=== PATIENT | male | born 1985 | race African-American/Black ===

== ENCOUNTER 2016-02-17 08:15 | Inpatient (IN) | payer OTHER ==
[~2016-02-17] VITALS: Ht 177.8 cm; Wt 68.0 kg
[~2016-02-17 08:15] MED LIST: APAP650 PO; BENTYL 10 MG CA10 M1 PO; BENTYL 10 MG CA10 MG PO; BENTYL 20 MG TA20 M1 PO; CIPRO500 MG; CIPRO500 MG PO; CIPROFLOXACIN500 M1 PO; DELTASONE20 MG PO; DICYCLOMINE HCL20 MG PO; FLAGYL500 MG PO; HYDROCODONE-AP1 EAC6 PO; K-DUR 20 MEQ T20 MEQ PO; NAPROSYN500 MG PO; NOHOMEMEDICATIONS; NORCO 5-325 TA1 EACH PO; NORFLEX100 MG PO; ONDANSETRON HCL4 M2 PO; PHENERGAN 25 MG25 M1 PO; PREDNISONE 10 M10 MG; PREDNISONE 20 M20 MG PO; PREDNISONE 5 MG5 MG PO; PRILOSEC 20 MG20 MG PO; TRAMADOL 50 MG50 MG PO; ZIAGEN 300 MG300 MG; ZOFRAN ODT4 MG PO; ZOFRAN4 MG PO
[2016-02-17 08:16] VITALS: BP 147/100
[2016-02-17 08:59] LABS: ABSOLUTE NEUTROPHILS 4.7 thou/uL (1.4-8.2); BASOPHILS 1.2 % (0.0-2.0); EOSINOPHILS 2.9 % (0.0-3.0); HEMATOCRIT 37.2 % (42.0-52.0); HEMOGLOBIN 12.4 gm/dL (14.0-18.0); LYMPHOCYTES 24.1 % (24.0-44.0); MCH 26.2 pg (26.0-34.0); MCHC 33.3 % (28.0-37.0); MCV 78.8 fL (80.0-100.0); MONOCYTES 7.9 % (1.0-8.0); PLATELET COUNT 254 thou/uL (150-400); POLYS 63.9 % (36.0-66.0); RBC 4.72 mil/uL (4.50-6.00); RDW 14.4 % (10.5-14.5); WBC 7.3 thou/uL (4.0-11.0)
[2016-02-17 09:04] LABS: CALCIUM 8.6 mg/dL (8.5-10.1); CREATININE 0.9 mg/dL (0.6-1.3); POTASSIUM 4.1 mmol/L (3.5-5.1)
[2016-02-17 09:07] LABS: MANUAL DIFF NO
[2016-02-17 09:17] VITALS: BP 132/94
[2016-02-17 09:49] LABS: URINE BILIRUBIN NEGATIVE (Negative); URINE BLOOD NEGATIVE (Negative); URINE COLOR YELLOW; URINE GLUCOSE-RANDOM* NEGATIVE (Negative); URINE KETONES NEGATIVE (Negative); URINE NITRITE NEGATIVE (Negative); URINE PROTEIN (DIPSTICK) NEGATIVE (Negative); URINE SPECIFIC GRAVITY >= 1.030 (1.003-1.035); URINE UROBILINOGEN 0.2 E.U./dl (0.2-1.0)
[2016-02-17 09:54] LABS: AMP/METHAMP Negative (Negative); BARBITURATES Negative (Negative); BENZODIAZEPINES Negative (Negative); COCAINE Negative (Negative); METHADONE Negative (Negative); OPIATES POSITIVE (Negative); PCP Negative (Negative); THC POSITIVE (Negative)
[2016-02-17 11:54] VITALS: BP 135/91
[2016-02-17 16:45] VITALS: BP 147/97
[2016-02-17 22:30] VITALS: BP 156/99
[2016-02-18 04:35] VITALS: BP 170/97
[2016-02-18 05:34] LABS: HEMATOCRIT 39.7 % (42.0-52.0); MCH 25.9 pg (26.0-34.0); MCHC 32.8 % (28.0-37.0); MCV 78.8 fL (80.0-100.0); RBC 5.04 mil/uL (4.50-6.00); RDW 13.9 % (10.5-14.5); WBC 12.6 thou/uL (4.0-11.0)
[2016-02-18 05:52] LABS: CALCIUM 8.7 mg/dL (8.5-10.1); CREATININE 0.9 mg/dL (0.6-1.3); POTASSIUM 4.4 mmol/L (3.5-5.1)
[2016-02-18 08:00] VITALS: BP 169/106
[2016-02-18 16:24] VITALS: BP 167/101
[2016-02-18 20:00] VITALS: BP 171/103
[2016-02-19 04:30] VITALS: BP 153/95
[2016-02-19 04:30] LABS: HEMATOCRIT 41.4 % (42.0-52.0); HEMOGLOBIN 13.4 gm/dL (14.0-18.0); MCH 25.7 pg (26.0-34.0); MCHC 32.5 % (28.0-37.0); MCV 79.1 fL (80.0-100.0); PLATELET COUNT 274 thou/uL (150-400); RBC 5.23 mil/uL (4.50-6.00); RDW 13.9 % (10.5-14.5); WBC 14.5 thou/uL (4.0-11.0)
[2016-02-19 05:00] LABS: MANUAL DIFF YES
[2016-02-19 05:20] LABS: ALBUMIN 3.5 g/dL (3.4-5.0); POTASSIUM 4.1 mmol/L (3.5-5.1); TOTAL BILIRUBIN 0.5 mg/dL (<0.1-1.0); TOTAL PROTEIN 7.1 g/dL (6.4-8.2)
[2016-02-19 06:47] LABS: ABSOLUTE NEUTROPHILS 11.6 thou/uL (1.4-8.2); PLATELET ESTIMATE NORMAL; TOTAL CELL COUNT 100
[2016-02-19 08:39] VITALS: BP 145/101
[2016-02-19 13:06] VITALS: BP 145/101
[2016-02-22 16:12] LABS: SACCHAROMYCES IGA < 20.0 Units (0.0-24.9); SACCHAROMYCES IGG < 20.0 Units (0.0-24.9); c-ANCA <1:20 titer (Neg:<1:20); p-ANCA <1:20 titer (Neg:<1:20)
[2016-04-08] MEDS ORDERED: PREDNISONE 20 M20 MG PO (21:16)
[2016-04-08] MEDS ORDERED: HYDROCODONE-AP1 EAC6 PO (21:16)
== END 2016-02-19 14:58 | disposition home or self-care (01) | DRG 387 ==
LOC: ER 08:15 → EROBS 08:46 → 4N 09:17
PROVIDERS: Emergency Medicine; Nurse Practitioner Family; Specialist
DX: K50.10 Crohn's disease of large intestine without complications (principal); R10.9 Unspecified abdominal pain; D72.828 Other elevated white blood cell count; K52.9 Noninfective gastroenteritis and colitis, unspecified; F12.10 Cannabis abuse, uncomplicated; I10 Essential (primary) hypertension; R11.2 Nausea with vomiting, unspecified; Z79.899 Other long term (current) drug therapy; Z79.52 Long term (current) use of systemic steroids; Z98.890 Other specified postprocedural states
CPT/HCPCS: 10091

== ENCOUNTER 2016-10-17 20:51 | Emergency (ER) | payer OTHER ==
[~2016-10-17] VITALS: Ht 180.3 cm; Wt 68.0 kg
[2016-10-17 21:37] LABS: ABSOLUTE NEUTROPHILS 6.9 thou/uL (1.4-8.2); BASOPHILS 0.7 % (0.0-2.0); EOSINOPHILS 1.6 % (0.0-3.0); HEMATOCRIT 45.7 % (42.0-52.0); HEMOGLOBIN 15.3 gm/dL (14.0-18.0); LYMPHOCYTES 17.9 % (24.0-44.0); MANUAL DIFF NO; MCH 26.9 pg (26.0-34.0); MCHC 33.4 g/dL (28.0-37.0); MCV 80.4 fL (80.0-100.0); MONOCYTES 6.8 % (1.0-8.0); PLATELET COUNT 277 thou/uL (150-400); RBC 5.69 mil/uL (4.50-6.00); RDW 15.8 % (10.5-14.5); WBC 9.5 thou/uL (4.0-11.0)
[2016-10-17 21:39] LABS: CALCIUM 9.3 mg/dL (8.5-10.1); CREATININE 0.9 mg/dL (0.7-1.3); POTASSIUM 3.5 mmol/L (3.5-5.1)
[2016-10-17 21:45] LABS: ALBUMIN 4.2 g/dL (3.4-5.0); DIRECT BILIRUBIN 0.1 mg/dL (<0.1-0.3); TOTAL BILIRUBIN 0.5 mg/dL (<0.1-1.0); TOTAL PROTEIN 7.7 g/dL (6.4-8.2)
[2016-10-17] MEDS ORDERED: NORCO 5-325 TA1 EACH PO (23:13)
[2016-10-17] MEDS ORDERED: PREDNISONE 20 M20 MG PO (23:13)
[2016-10-17] MEDS ORDERED: OMEPRAZOLE40 MG PO (23:13)
[2016-10-17] MEDS ORDERED: ONDANSETRON HCL4 M2 PO (23:16)
== END 2016-10-17 23:29 | disposition home or self-care (01) ==
LOC: ER 20:51
PROVIDERS: Nurse Practitioner
DX: E87.2 Acidosis (principal); R11.2 Nausea with vomiting, unspecified; K50.90 Crohn's disease, unspecified, without complications; F10.99 Alcohol use, unspecified with unspecified alcohol-induced disorder

== ENCOUNTER 2016-10-29 18:04 | Emergency (ER) | payer OTHER ==
[~2016-10-29] VITALS: Ht 172.7 cm; Wt 65.8 kg
[~2016-10-29 18:04] MED LIST changes: +OMEPRAZOLE40 MG PO
[2016-10-29 19:01] LABS: ABSOLUTE NEUTROPHILS 3.8 thou/uL (1.4-8.2); BASOPHILS 1.4 % (0.0-2.0); EOSINOPHILS 1.2 % (0.0-3.0); HEMATOCRIT 46.3 % (42.0-52.0); HEMOGLOBIN 15.9 gm/dL (14.0-18.0); LYMPHOCYTES 31.2 % (24.0-44.0); MCH 27.4 pg (26.0-34.0); MCHC 34.3 g/dL (28.0-37.0); PLATELET COUNT 252 thou/uL (150-400); POLYS 57.2 % (36.0-66.0); RBC 5.79 mil/uL (4.50-6.00); RDW 15.5 % (10.5-14.5); WBC 6.6 thou/uL (4.0-11.0)
[2016-10-29 19:09] LABS: MANUAL DIFF NO
[2016-10-29 19:12] LABS: CALCIUM 9.8 mg/dL (8.5-10.1); CREATININE 1.3 mg/dL (0.7-1.3); POTASSIUM 3.6 mmol/L (3.5-5.1)
[2016-10-29 19:18] LABS: ALBUMIN 4.5 g/dL (3.4-5.0); TOTAL BILIRUBIN 0.4 mg/dL (<0.1-1.0); TOTAL PROTEIN 8.2 g/dL (6.4-8.2)
[2016-10-29] MEDS ORDERED: ACETAMINOPHEN-1 EAC1 PO (19:59)
[2016-10-29] MEDS ORDERED: ZOFRAN ODT8 MG PO (19:59)
[2016-10-29] MEDS ORDERED: LEVSIN0.125 MG PO (19:59)
== END 2016-10-29 20:18 | disposition home or self-care (01) ==
LOC: ER 18:04
PROVIDERS: Emergency Medicine
DX: R11.2 Nausea with vomiting, unspecified (principal); R10.13 Epigastric pain; R10.33 Periumbilical pain; R14.3 Flatulence; K50.90 Crohn's disease, unspecified, without complications; F10.99 Alcohol use, unspecified with unspecified alcohol-induced disorder; F12.10 Cannabis abuse, uncomplicated

== ENCOUNTER 2017-01-08 18:46 | Emergency (ER) | payer OTHER ==
[~2017-01-08] VITALS: Ht 177.8 cm; Wt 68.0 kg
[~2017-01-08 18:46] MED LIST changes: +ACETAMINOPHEN-1 EAC1 PO; +COMPAZINE10 MG PO; +LEVSIN0.125 MG PO; +ZOFRAN ODT8 MG PO
[2017-01-08 20:04] LABS: URINE BILIRUBIN NEGATIVE (Negative); URINE BLOOD NEGATIVE (Negative); URINE COLOR YELLOW; URINE GLUCOSE-RANDOM* NEGATIVE (Negative); URINE KETONES TRACE (Negative); URINE LEUKOCYTES-REFLEX NEGATIVE (Negative); URINE PROTEIN (DIPSTICK) NEGATIVE (Negative); URINE UROBILINOGEN 0.2 E.U./dl (0.2-1.0)
[2017-01-08 20:45] LABS: AMP/METHAMP Negative (Negative); BARBITURATES Negative (Negative); BENZODIAZEPINES Negative (Negative); COCAINE Negative (Negative); METHADONE Negative (Negative); OPIATES POSITIVE (Negative); PCP Negative (Negative); THC POSITIVE (Negative)
[2017-01-08] MEDS ORDERED: PHENERGAN 25 MG25 M1 PO (22:06)
== END 2017-01-08 22:15 | disposition home or self-care (01) ==
LOC: ER 18:46
PROVIDERS: Emergency Medicine
DX: R10.84 Generalized abdominal pain (principal); R11.2 Nausea with vomiting, unspecified; F10.99 Alcohol use, unspecified with unspecified alcohol-induced disorder; F12.10 Cannabis abuse, uncomplicated

== ENCOUNTER 2018-04-28 12:28 | Emergency (ER) | payer OTHER ==
[~2018-04-28] VITALS: Ht 180.3 cm; Wt 72.6 kg
[2018-04-28 12:55] LABS: URINE BILIRUBIN NEGATIVE (Negative); URINE BLOOD NEGATIVE (Negative); URINE CLARITY CLEAR; URINE COLOR YELLOW; URINE GLUCOSE-RANDOM* NEGATIVE (Negative); URINE KETONES NEGATIVE (Negative); URINE LEUKOCYTES-REFLEX NEGATIVE (Negative); URINE NITRITE-REFLEX NEGATIVE (Negative); URINE PROTEIN (DIPSTICK) NEGATIVE (Negative); URINE SPECIFIC GRAVITY >= 1.030 (1.005-1.035); URINE UROBILINOGEN 0.2 E.U./dl (0.2-1.0)
[2018-04-28 13:21] LABS: POTASSIUM 4.2 mmol/L (3.5-5.1)
[2018-04-28 13:26] LABS: ALBUMIN 3.9 g/dL (3.4-5.0); TOTAL BILIRUBIN 0.3 mg/dL (<0.1-1.0); TOTAL PROTEIN 7.8 g/dL (6.4-8.2)
[2018-04-28 13:40] LABS: ABSOLUTE NEUTROPHILS 11.3 thou/uL (1.4-8.2); BASOPHILS 0.8 % (0.0-2.0); EOSINOPHILS 1.6 % (0.0-3.0); HEMATOCRIT 48.6 % (42.0-52.0); LYMPHOCYTES 9.2 % (24.0-44.0); MCH 26.3 pg (26.0-34.0); MCHC 32.9 g/dL (28.0-37.0); PLATELET COUNT 254 thou/uL (150-400); POLYS 82.4 % (36.0-66.0); RBC 6.07 mil/uL (4.50-6.00); RDW 14.6 % (10.5-14.5); WBC 13.7 thou/uL (4.0-11.0)
[2018-04-28] MEDS ORDERED: MEDROLDOSEPACK PO (14:36)
[2018-04-28] MEDS ORDERED: NORCO 5-325 TA1 EACH PO (14:36)
[2018-04-28] MEDS ORDERED: ONDANSETRON HCL4 M2 PO (14:43)
[2018-04-28 14:52] VITALS: BP 131/86
== END 2018-04-28 14:52 | disposition home or self-care (01) ==
LOC: ER 12:28
PROVIDERS: Physician Assistant
DX: K52.9 Noninfective gastroenteritis and colitis, unspecified (principal); K50.90 Crohn's disease, unspecified, without complications

== ENCOUNTER 2018-10-11 11:25 | Emergency (ER) | payer OTHER ==
[~2018-10-11] VITALS: Ht 177.8 cm; Wt 71.7 kg
[~2018-10-11 11:25] MED LIST changes: +MEDROLDOSEPACK PO
[2018-10-11 11:47] LABS: ABSOLUTE NEUTROPHILS 5.9 thou/uL (1.4-8.2); BASOPHILS 0.7 % (0.0-2.0); EOSINOPHILS 2.2 % (0.0-3.0); HEMATOCRIT 47.3 % (42.0-52.0); LYMPHOCYTES 20.7 % (24.0-44.0); MCH 26.8 pg (26.0-34.0); MCHC 33.9 g/dL (28.0-37.0); MONOCYTES 8.4 % (1.0-8.0); PLATELET COUNT 278 thou/uL (150-400); RBC 5.98 mil/uL (4.50-6.00); RDW 14.6 % (10.5-14.5); WBC 8.7 thou/uL (4.0-11.0)
[2018-10-11 11:52] LABS: CALCIUM 9.8 mg/dL (8.5-10.1); CREATININE 1.1 mg/dL (0.7-1.3); POTASSIUM 3.4 mmol/L (3.5-5.1)
[2018-10-11 11:58] LABS: ALBUMIN 4.5 g/dL (3.4-5.0); TOTAL BILIRUBIN 0.6 mg/dL (<0.1-1.0); TOTAL PROTEIN 8.7 g/dL (6.4-8.2)
[2018-10-11 12:38] LABS: MAGNESIUM 1.6 mg/dL (1.8-2.4); PHOSPHORUS 1.7 mg/dL (2.5-4.9)
[2018-10-11 13:18] LABS: URINE BILIRUBIN NEGATIVE (Negative); URINE BLOOD NEGATIVE (Negative); URINE CLARITY CLEAR; URINE COLOR YELLOW; URINE GLUCOSE-RANDOM* NEGATIVE (Negative); URINE KETONES NEGATIVE (Negative); URINE LEUKOCYTES-REFLEX NEGATIVE (Negative); URINE NITRITE-REFLEX NEGATIVE (Negative); URINE PROTEIN (DIPSTICK) TRACE (Negative); URINE UROBILINOGEN 0.2 E.U./dl (0.2-1.0)
[2018-10-11] MEDS ORDERED: MAG-OXIDE400 MG PO (14:35)
[2018-10-11] MEDS ORDERED: ONDANSETRON ODT8 MG PO (14:35)
[2018-10-11] MEDS ORDERED: K-PHOS NEUTRAL250 MG PO (14:35)
[2018-10-11] MEDS ORDERED: TRAMADOL 50 MG50 MG PO (14:35)
[2018-10-11 15:01] VITALS: BP 103/66
== END 2018-10-11 15:02 | disposition home or self-care (01) ==
LOC: ER 11:25
PROVIDERS: Emergency Medicine
DX: K50.90 Crohn's disease, unspecified, without complications (principal); E83.42 Hypomagnesemia; E83.39 Other disorders of phosphorus metabolism

== ENCOUNTER 2018-12-16 17:10 | Emergency (ER) | payer OTHER ==
[~2018-12-16] VITALS: Ht 177.8 cm; Wt 73.5 kg
[~2018-12-16 17:10] MED LIST changes: +K-PHOS NEUTRAL250 MG PO; +MAG-OXIDE400 MG PO; +ONDANSETRON ODT8 MG PO
[2018-12-16 17:14] VITALS: BP 135/91
[2018-12-16 18:15] LABS: URINE BILIRUBIN NEGATIVE (Negative); URINE BLOOD NEGATIVE (Negative); URINE CLARITY SL CLOUDY; URINE COLOR YELLOW; URINE GLUCOSE-RANDOM* NEGATIVE (Negative); URINE KETONES NEGATIVE (Negative); URINE LEUKOCYTES-REFLEX 2+ (Negative); URINE NITRITE-REFLEX NEGATIVE (Negative); URINE PROTEIN (DIPSTICK) NEGATIVE (Negative)
[2018-12-16 18:25] LABS: BACTERIA-REFLEX 1-9 Few /HPF (None Seen); CASTS None Seen /LPF (None Seen); CRYSTALS None Seen /LPF (None Seen); SQUAMOUS None Seen /LPF (0-3); URINE RBC None Seen /HPF (0-2); URINE WBC-REFLEX >25 Many /HPF (0-5)
[2018-12-16] MEDS ORDERED: DOXYCYCLINE 10100 MG PO (18:50)
== END 2018-12-16 18:40 | disposition home or self-care (01) ==
LOC: ER 17:10
PROVIDERS: Emergency Medicine; Nurse Practitioner Family
DX: N34.2 Other urethritis (principal); K50.90 Crohn's disease, unspecified, without complications

== ENCOUNTER 2019-01-10 13:17 | Emergency (ER) | payer OTHER ==
[~2019-01-10] VITALS: Ht 175.3 cm; Wt 76.2 kg
[~2019-01-10 13:17] MED LIST changes: +DOXYCYCLINE 10100 MG PO
[2019-01-10 13:48] LABS: ABSOLUTE NEUTROPHILS 6.6 thou/uL (1.4-8.2); BASOPHILS 0.8 % (0.0-2.0); EOSINOPHILS 3.1 % (0.0-3.0); HEMATOCRIT 43.5 % (42.0-52.0); HEMOGLOBIN 14.5 gm/dL (14.0-18.0); LYMPHOCYTES 18.5 % (24.0-44.0); MCH 26.6 pg (26.0-34.0); MCHC 33.3 g/dL (28.0-37.0); MCV 79.9 fL (80.0-100.0); MONOCYTES 4.8 % (1.0-8.0); PLATELET COUNT 314 thou/uL (150-400); POLYS 72.8 % (36.0-66.0); RBC 5.45 mil/uL (4.50-6.00); RDW 14.6 % (10.5-14.5); WBC 9.1 thou/uL (4.0-11.0)
[2019-01-10 13:56] LABS: CREATININE 1.1 mg/dL (0.7-1.3); POTASSIUM 3.6 mmol/L (3.5-5.1)
[2019-01-10 14:02] LABS: ALBUMIN 4.5 g/dL (3.4-5.0); TOTAL BILIRUBIN 0.4 mg/dL (<0.1-1.0); TOTAL PROTEIN 8.2 g/dL (6.4-8.2)
[2019-01-10] MEDS ORDERED: ONDANSETRON ODT4 MG PO (15:01)
[2019-01-10 15:44] VITALS: BP 143/89
== END 2019-01-10 15:45 | disposition home or self-care (01) ==
LOC: ER 13:17
PROVIDERS: Emergency Medicine
DX: R10.33 Periumbilical pain (principal); R19.7 Diarrhea, unspecified; K50.90 Crohn's disease, unspecified, without complications

== ENCOUNTER 2019-01-25 15:43 | Emergency (ER) | payer OTHER ==
[~2019-01-25] VITALS: Ht 177.8 cm; Wt 72.6 kg
[~2019-01-25 15:43] MED LIST changes: +ONDANSETRON ODT4 MG PO
[2019-01-25 16:34] LABS: ABSOLUTE NEUTROPHILS 3.5 thou/uL (1.4-8.2); BASOPHILS 1.3 % (0.0-2.0); EOSINOPHILS 5.3 % (0.0-3.0); HEMATOCRIT 46.2 % (42.0-52.0); HEMOGLOBIN 15.1 gm/dL (14.0-18.0); MCH 26.5 pg (26.0-34.0); MCHC 32.6 g/dL (28.0-37.0); MCV 81.2 fL (80.0-100.0); MONOCYTES 8.6 % (1.0-8.0); PLATELET COUNT 310 thou/uL (150-400); POLYS 61.8 % (36.0-66.0); RBC 5.69 mil/uL (4.50-6.00); RDW 15.1 % (10.5-14.5); WBC 5.7 thou/uL (4.0-11.0)
[2019-01-25 16:52] LABS: ALBUMIN 4.5 g/dL (3.4-5.0); POTASSIUM 4.4 mmol/L (3.5-5.1); TOTAL BILIRUBIN 0.3 mg/dL (<0.1-1.0); TOTAL PROTEIN 8.5 g/dL (6.4-8.2)
[2019-01-25 16:59] LABS: CALCIUM 10.2 mg/dL (8.5-10.1)
[2019-01-25 17:41] LABS: URINE BILIRUBIN NEGATIVE (Negative); URINE BLOOD NEGATIVE (Negative); URINE CLARITY CLEAR; URINE COLOR YELLOW; URINE GLUCOSE-RANDOM* NEGATIVE (Negative); URINE KETONES NEGATIVE (Negative); URINE LEUKOCYTES-REFLEX NEGATIVE (Negative); URINE NITRITE-REFLEX NEGATIVE (Negative); URINE PROTEIN (DIPSTICK) NEGATIVE (Negative); URINE SPECIFIC GRAVITY 1.015 (1.005-1.035); URINE UROBILINOGEN 0.2 E.U./dl (0.2-1.0)
[2019-01-25] MEDS ORDERED: TRAMADOL 50 MG50 MG PO (20:07)
[2019-01-25] MEDS ORDERED: ONDANSETRON ODT8 MG PO (20:07)
[2019-01-25] MEDS ORDERED: PRILOSEC OTC20 MG PO (20:08)
[2019-01-25 20:16] VITALS: BP 142/76
[2019-01-25 20:32] LABS: AMP/METHAMP Negative (Negative); BARBITURATES Negative (Negative); BENZODIAZEPINES POSITIVE (Negative); COCAINE Negative (Negative); METHADONE Negative (Negative); OPIATES Negative (Negative); PCP Negative (Negative)
== END 2019-01-25 20:18 | disposition home or self-care (01) ==
LOC: ER 15:43
PROVIDERS: Emergency Medicine
DX: R11.2 Nausea with vomiting, unspecified (principal); R10.13 Epigastric pain; Z87.19 Personal history of other diseases of the digestive system

== ENCOUNTER 2019-01-27 12:04 | Inpatient (IN) | payer OTHER ==
[~2019-01-27] VITALS: Ht 177.8 cm; Wt 71.2 kg
[~2019-01-27 12:04] MED LIST changes: +PRILOSEC OTC20 MG PO
[2019-01-27 12:16] VITALS: BP 161/105
[2019-01-27 13:37] LABS: ABSOLUTE NEUTROPHILS 9.1 thou/uL (1.4-8.2); BASOPHILS 0.7 % (0.0-2.0); EOSINOPHILS 0.8 % (0.0-3.0); HEMATOCRIT 44.1 % (42.0-52.0); HEMOGLOBIN 14.5 gm/dL (14.0-18.0); LYMPHOCYTES 13.4 % (24.0-44.0); MCH 26.5 pg (26.0-34.0); MCHC 32.9 g/dL (28.0-37.0); MCV 80.7 fL (80.0-100.0); MONOCYTES 4.6 % (1.0-8.0); PLATELET COUNT 296 thou/uL (150-400); POLYS 80.5 % (36.0-66.0); RBC 5.47 mil/uL (4.50-6.00); RDW 14.9 % (10.5-14.5); WBC 11.2 thou/uL (4.0-11.0)
[2019-01-27 13:47] LABS: CALCIUM 9.7 mg/dL (8.5-10.1); CREATININE 1.1 mg/dL (0.7-1.3); POTASSIUM 3.4 mmol/L (3.5-5.1)
[2019-01-27 13:52] LABS: ALBUMIN 4.6 g/dL (3.4-5.0); DIRECT BILIRUBIN 0.1 mg/dL (<0.1-0.2); TOTAL BILIRUBIN 0.4 mg/dL (<0.1-1.0); TOTAL PROTEIN 8.5 g/dL (6.4-8.2)
[2019-01-27 16:56] VITALS: BP 146/81
[2019-01-27 17:49] VITALS: BP 158/101
[2019-01-27 19:13] VITALS: BP 158/96
--- NOTE | 2019-01-28 03:56 | NUR ---
ASSUMED CARE AROUND 1914. AXOX4. AD UCHE. PERSISTENT PAIN TO ABD AND UNRELIEVED NAUSEA, PARTIALLY RELIEVED WITH MEDS. IV REPLACED TO RFA IN THE BEGINNING OF SHIFT CHANGE. NO S/S ACUTE DISTRESS NOTED OR REPORTED AT THIS TIME. WILL CONT TO MONITOR FOR ANY CHANGES IN CONDITION.
[2019-01-28 04:02] VITALS: BP 124/82
[2019-01-28 06:02] LABS: ABSOLUTE NEUTROPHILS 6.4 thou/uL (1.4-8.2); BASOPHILS 0.7 % (0.0-2.0); EOSINOPHILS 1.1 % (0.0-3.0); HEMATOCRIT 38.2 % (42.0-52.0); LYMPHOCYTES 23.8 % (24.0-44.0); MCH 26.5 pg (26.0-34.0); MCHC 32.4 g/dL (28.0-37.0); MCV 81.9 fL (80.0-100.0); MONOCYTES 6.5 % (1.0-8.0); PLATELET COUNT 253 thou/uL (150-400); POLYS 67.9 % (36.0-66.0); RBC 4.66 mil/uL (4.50-6.00); RDW 14.6 % (10.5-14.5); WBC 9.5 thou/uL (4.0-11.0)
[2019-01-28 06:12] LABS: HEMOGLOBIN 12.4 gm/dL (14.0-18.0)
[2019-01-28 06:16] LABS: ALBUMIN 3.4 g/dL (3.4-5.0); CALCIUM 8.4 mg/dL (8.5-10.1); CREATININE 0.9 mg/dL (0.7-1.3); MAGNESIUM 1.6 mg/dL (1.8-2.4); POTASSIUM 3.9 mmol/L (3.5-5.1); TOTAL BILIRUBIN 0.7 mg/dL (<0.1-1.0); TOTAL PROTEIN 6.5 g/dL (6.4-8.2)
[2019-01-28 07:24] VITALS: BP 128/71
--- NOTE | 2019-01-28 11:44 | NUR ---
ORDERS RECEIVED FOR PT EVAL AND TREAT. Pt HAS BEEN UP AD UCHE IN ROOM PER Pt AND RN. Pt REPORTED HE LIVES IN AN APT ALONE, SECOND FLOOR WITH FLIGHT OF STAIRS TO ACCESS. INDEP WITH ADLs AND GAIT W/O ASSISTIVE DEVICES. REPORTED NO RECENT FALLS. Pt WORKS OVERNIGHT FOR [employer]. Pt REPORTED NO DIFFICULTIES WITH GAIT, BALANCE, OR STRENGTH. DECLINED NEEDED PT SERVICES AT THIS TIME. IF Pt EXPERIENCES CHANGE IN FUNCTIONAL MOBILITY, BALANCE/COORDINATION, OR STRENGTH, PLEASE CONSIDER RE-CONSULTING PT. ACUTE PT TO SIGN OFF.
[2019-01-28 14:24] VITALS: BP 130/72
--- NOTE | 2019-01-28 14:26 | NUR ---
PT ADMITTED RELATED TO ABD PAIN, N/V. CM REVIEWED CHART AND SPOKE WITH CARE TEAM. CM MET WITH PT AT BEDSIDE THIS DAY. PT IS A&O X4. CM ROLE INTRODUCED. PT INDICATED HE LIVES IN AN APARTMENT ALONE WITH 12 STEPS TO ENTER AND NO STEPS INSIDE. 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 PT INDICATED HE ANTICPATES RETURNING HOME ONCE MEDICALLY STABLE. SHOULD PT HAVE ANY NEEDS CM ABLE TO FOLLOW UP NEEDED.
--- NOTE | 2019-01-28 17:18 | NUR ---
Assumed pt care at 7am.Pt in bed sleeping on and off without c/o.Assessment completed,vss.Consent signed for egd. At 1459,pt left for gi lab per wc and and returned to room around 1630 in stable condition.Clear liq given and well tolerated.Pt will possibly dc home in am.Will continue to monitor.
[2019-01-28 19:25] VITALS: BP 135/95
--- NOTE | 2019-01-29 03:47 | NUR ---
ASSUMED CARE AROUND 191. AXOX4. CALLS APPROPRIATELY FOR HELP. DENIES N/V/AB PAIN AT THIS TIME. TOLERATED CLEAR LIQUIDS GOOD. NO S/S ACUTE DISTRESS NOTED OR REPORTED AT THIS TIME. WILL CONT TO MONITOR FOR ANY CHANGES IN CONDITION.
--- NOTE | 2019-01-29 05:21 | P ---
[facility] [place] [address] PROCEDURE REPORT Name: LIZZIE AHUMADA JR Room #: 454-P ADM IN M.R.#: [id number] Admission: 01/27/19 Attend Phys: Geraldo Mcknight MD Discharge: Date of : 83 Report #: [id number] THIS REPORT FOR: //name// CC: ELIJAH physician/PCP NO PCP Geraldo Mcknight MD DATE OF SERVICE: 01/28/2019 PROCEDURE: EGD with biopsies. He is a patient of Dr. Geraldo Mcknight. INDICATION FOR PROCEDURE: This patient has had nausea, vomiting and epigastric pain since this past Saturday. He may have a history of Crohn disease. He has had ulcers in his colon previously which may have been related to an infectious process with Campylobacter jejuni or Crohn disease. The etiology of those ulcers in his colon was not exactly clear at the time. We are performing EGD to evaluate the epigastric pain, nausea and vomiting that he has been having today. Informed consent for this procedure was obtained prior to the administration of any medication. The risks of the procedure which include bleeding, perforation, infection, complications of sedation and the possibility I could miss something have been explained to the patient and he has indicated his consent by signing. Anesthesia kindly provided deep sedation for this procedure with propofol. DESCRIPTION OF PROCEDURE: With the patient in the left lateral decubitus position under deep sedation, the Olympus upper videoscope was introduced through the upper esophageal sphincter and advanced under direct visualization to the third portion of the duodenum. Findings are noted on withdrawal of the scope. The visualized portions of the third, second and duodenal bulb portions of the duodenum appeared normal. Pylorus, normal mucosa. Antrum, there is some patchy erythema of the antral mucosa. Biopsies were obtained x 2 for histopathology. Body in the mid body of the stomach, there is a large patch of very erythematous mucosa. Biopsies were obtained x 2 from this area in the more proximal stomach for histopathology. Retroflexed view did not reveal any hiatal hernia. The scope was withdrawn into the esophagus. The Z-line is appropriately located at the top of the gastric folds and appears normal. The esophageal mucosa appears normal throughout its entirety. The scope was withdrawn. The patient went to the recovery area in stable condition. He tolerated the procedure well. Good hemostasis was noted after all biopsies. IMPRESSION: 1. Patchy moderate gastric erythema, biopsies pending. [address] [address] PROCEDURE REPORT Name: BRANDYNMARICRUZBLAINE BEJARANO Room #: 454-P [facility] IN M.R.#: [id number] Admission: 01/27/19 Attend Phys: Geraldo Mcknight MD Discharge: Date of : 83 Report #: [id number] 2. Normal duodenum. 3. Normal esophagus. RECOMMENDATIONS: To await the biopsy results. We will continue the proton pump inhibitors. We will start him on a clear liquid diet to advance as tolerated. Thank you very much once again for allowing me to participate in his care, Dr. Mcknight. <ELECTRONICALLY SIGNED> By: Katy Melendez DO 01/29/19 0521 1556 0215 Katy Melendez DO /nt
[2019-01-29 08:03] VITALS: BP 133/85
[2019-01-29 15:07] VITALS: BP 133/85
[2019-01-29] MEDS ORDERED: PANTOPRAZOLE SO40 M1 PO (15:25)
--- NOTE | 2019-01-29 15:55 | NUR ---
Assumed pt care at 7am.Assessment completed.vss.Pt in and out of bed to br. Pt tolerated regular food today.Dr Cheema and Al here,dc order noted. Dc summary compile and reviewed with pt.Rx and dc summary copy given.Saline lock dc'd.At 1545,pt dc home ambulatory.Pt reminded to pharmacy picking tech home med from in pt pahrmacy.
--- NOTE | 2019-01-29 16:23 | NUR ---
CARE TEAM INDICATED THAT PT IS MEDICALLY STABLE TO DC HOME THIS DAY. PT IS TO DISCHARGE HOME TO SELF CARE. PT HAD PCP AND INSURANCE COVERAGE FOR ANY PERSCRIBED MEDS. PT REQUIRES NO OTHER CM INTERVENTION. CASE CLOSED.
[2019-01-30] MEDS ORDERED: ZOFRAN4 MG PO (10:48)
[2019-01-30] MEDS ORDERED: NORCO 5-325 TA1 EAC1 PO (12:54)
[2019-01-30] MEDS ORDERED: PROMS25 WY RECTAL (12:54)
--- NOTE | 2019-02-02 16:06 | PATH ---
[facility] [address] [place] [address] PATHOLOGY RPT PROCEDURE Name: BRANDYNALEJANDRINAMckenna BEJARANO JR Room #: 454-P [facility] IN M.R.#: [id number] Admission: 01/27/19 Date of : 83 Discharge: 01/29/19 Report #: [id number] Path Case #: [id number] [facility] Accession Number: [id number] . 01 Material submitted: . stomach - RANDOM GASTRIC BIOPSIES TO EVALUATE GASTRITIS . 01 Clinical history: . Nausea, vomiting, epigastric pain, gastritis. . 02 Diagnosis: Gastric mucosa, random, endoscopic biopsy: - Mild chronic inflammation. - Negative for intestinal metaplasia or atrophy. - Negative for Helicobacter pylori (properly-controlled immunohistochemical stain performed). . (IUV:mml; 02/02/2019) QL 02/02/2019 1318 Local . 02 Electronically signed: . Brianna Sotelo MD, Pathologist NPI- [id number] . 01 Gross description: . Received in formalin labeled "Cross Jr., [place], random gastric BX rule out gastritis" is a 0.8 x 0.7 x 0.1 cm aggregate of hobbs-brown mucosa fragments. The specimen is submitted in A1. [place] [place] [facility] 02/01/2019 0901 Local . 02 Pathologist provided ICD-10: K29.50 . 02 CPT . 711667, [id number] Specimen Comment: A courtesy copy of this report has been sent to [phone], [phone] Specimen Comment: [phone] Specimen Comment: Report sent to and Performed at: [address], [place] [id number] MD Korey Ramírez MD Phone: [phone] Performed at: [address] [id number] MD Brianna Sotelo MD Phone: [phone]
== END 2019-01-29 16:29 | disposition home or self-care (01) | DRG 392 ==
LOC: ER 12:04 → EROBS 17:00 → 4W 17:00
PROVIDERS: Nurse Practitioner; ADMIT Internal Medicine
PROC: 0DB68ZX Excision of Stomach, Via Natural or Artificial Opening Endoscopic, Diagnostic (ICD-10-PCS; principal; 2019-01-28)
DX: K29.70 Gastritis, unspecified, without bleeding (principal); K50.90 Crohn's disease, unspecified, without complications; K21.9 Gastro-esophageal reflux disease without esophagitis; E83.42 Hypomagnesemia; F12.10 Cannabis abuse, uncomplicated; Z79.899 Other long term (current) drug therapy; Z87.891 Personal history of nicotine dependence
CPT/HCPCS: 10040; 62110; 62900; 70005

== ENCOUNTER 2019-01-30 10:21 | Emergency (ER) | payer OTHER ==
[~2019-01-30] VITALS: Ht 177.8 cm; Wt 71.2 kg
[~2019-01-30 10:21] MED LIST changes: +PANTOPRAZOLE SO40 M1 PO
[2019-01-30] MEDS ORDERED: ZOFRAN4 MG PO (10:48)
[2019-01-30 11:02] LABS: ABSOLUTE NEUTROPHILS 7.2 thou/uL (1.4-8.2); BASOPHILS 1.1 % (0.0-2.0); EOSINOPHILS 2.1 % (0.0-3.0); HEMATOCRIT 43.1 % (42.0-52.0); LYMPHOCYTES 18.9 % (24.0-44.0); MCH 26.6 pg (26.0-34.0); MCHC 33.3 g/dL (28.0-37.0); MCV 79.8 fL (80.0-100.0); PLATELET COUNT 295 thou/uL (150-400); POLYS 69.9 % (36.0-66.0); RDW 14.4 % (10.5-14.5); WBC 10.3 thou/uL (4.0-11.0)
[2019-01-30 11:05] LABS: HEMOGLOBIN 14.4 gm/dL (14.0-18.0)
[2019-01-30 11:10] LABS: CREATININE 1.1 mg/dL (0.7-1.3); POTASSIUM 3.5 mmol/L (3.5-5.1)
[2019-01-30 11:17] LABS: ALBUMIN 4.4 g/dL (3.4-5.0); TOTAL BILIRUBIN 0.4 mg/dL (<0.1-1.0); TOTAL PROTEIN 8.2 g/dL (6.4-8.2)
[2019-01-30 11:43] LABS: URINE BILIRUBIN NEGATIVE (Negative); URINE BLOOD NEGATIVE (Negative); URINE CLARITY CLEAR; URINE COLOR YELLOW; URINE GLUCOSE-RANDOM* NEGATIVE (Negative); URINE KETONES NEGATIVE (Negative); URINE LEUKOCYTES-REFLEX NEGATIVE (Negative); URINE NITRITE-REFLEX NEGATIVE (Negative); URINE PROTEIN (DIPSTICK) TRACE (Negative); URINE SPECIFIC GRAVITY 1.015 (1.005-1.035); URINE UROBILINOGEN 0.2 E.U./dl (0.2-1.0)
[2019-01-30 12:42] LABS: AMP/METHAMP Negative (Negative); BARBITURATES Negative (Negative); BENZODIAZEPINES Negative (Negative); COCAINE Negative (Negative); METHADONE Negative (Negative); OPIATES Negative (Negative); PCP Negative (Negative)
[2019-01-30] MEDS ORDERED: PROMS25 WY RECTAL (12:54)
[2019-01-30] MEDS ORDERED: NORCO 5-325 TA1 EAC1 PO (12:54)
[2019-01-30 13:13] VITALS: BP 121/72
== END 2019-01-30 13:14 | disposition home or self-care (01) ==
LOC: ER 10:21
PROVIDERS: Emergency Medicine
DX: K85.90 Acute pancreatitis without necrosis or infection, unspecified (principal); F12.19 Cannabis abuse with unspecified cannabis-induced disorder; R11.2 Nausea with vomiting, unspecified; Z79.899 Other long term (current) drug therapy

== ENCOUNTER 2019-09-29 13:13 | Emergency (ER) | payer OTHER ==
[~2019-09-29] VITALS: Ht 177.8 cm; Wt 73.9 kg
[~2019-09-29 13:13] MED LIST changes: +NORCO 5-325 TA1 EAC1 PO; +PROMS25 WY RECTAL
[2019-09-29 13:15] VITALS: BP 128/87
[2019-09-29] MEDS ORDERED: FLAGYL500 M1 PO (13:40)
== END 2019-09-29 13:52 | disposition home or self-care (01) ==
LOC: ER 13:13
DX: A56.01 Chlamydial cystitis and urethritis (principal); Z79.899 Other long term (current) drug therapy

== ENCOUNTER 2020-02-13 16:07 | Emergency (ER) | payer OTHER ==
[~2020-02-13] VITALS: Ht 177.8 cm; Wt 72.6 kg
[~2020-02-13 16:07] MED LIST changes: +FLAGYL500 M1 PO
[2020-02-13 16:37] LABS: BASOPHILS 1.2 % (0.0-2.0); EOSINOPHILS 1.7 % (0.0-3.0); HEMATOCRIT 48.7 % (42.0-52.0); LYMPHOCYTES 19.1 % (24.0-44.0); MCH 26.9 pg (26.0-34.0); MCHC 32.8 g/dL (28.0-37.0); MCV 81.9 fL (80.0-100.0); MONOCYTES 4.7 % (1.0-8.0); PLATELET COUNT 310 thou/uL (150-400); POLYS 73.3 % (36.0-66.0); RBC 5.94 mil/uL (4.50-6.00); RDW 14.4 % (10.5-14.5); WBC 8.1 thou/uL (4.0-11.0)
[2020-02-13 16:45] LABS: CALCIUM 10.5 mg/dL (8.5-10.1); CREATININE 0.9 mg/dL (0.7-1.3)
[2020-02-13 16:48] LABS: POTASSIUM 4.5 mmol/L (3.5-5.1)
[2020-02-13 16:51] LABS: ALBUMIN 4.5 g/dL (3.4-5.0); TOTAL BILIRUBIN 0.5 mg/dL (0.2-1.0); TOTAL PROTEIN 8.4 g/dL (6.4-8.2)
[2020-02-13 18:21] VITALS: BP 147/99
[2020-02-13] MEDS ORDERED: BENTYL 20 MG TA20 M1 PO (18:25)
[2020-02-13] MEDS ORDERED: ZOFRAN ODT4 MG PO (18:25)
== END 2020-02-13 18:36 | disposition home or self-care (01) ==
LOC: ER 16:07
PROVIDERS: Emergency Medicine
DX: F12.988 Cannabis use, unspecified with other cannabis-induced disorder (principal); R11.2 Nausea with vomiting, unspecified; R10.33 Periumbilical pain

== ENCOUNTER 2020-06-05 16:20 | Emergency (ER) | payer OTHER ==
[~2020-06-05] VITALS: Ht 177.8 cm; Wt 72.6 kg
[2020-06-05 18:29] LABS: BASOPHILS 0.8 % (0.0-2.0); EOSINOPHILS 0.3 % (0.0-3.0); HEMOGLOBIN 14.8 gm/dL (14.0-18.0); LYMPHOCYTES 9.7 % (24.0-44.0); MCHC 33.6 g/dL (28.0-37.0); MCV 80.3 fL (80.0-100.0); MONOCYTES 3.4 % (1.0-8.0); PLATELET COUNT 296 thou/uL (150-400); POLYS 85.8 % (36.0-66.0); RBC 5.48 mil/uL (4.50-6.00); RDW 14.8 % (10.5-14.5); WBC 8.2 thou/uL (4.0-11.0)
[2020-06-05 18:37] LABS: CALCIUM 9.4 mg/dL (8.5-10.1); POTASSIUM 3.9 mmol/L (3.5-5.1)
[2020-06-05 18:43] LABS: ALBUMIN 3.9 g/dL (3.4-5.0); TOTAL BILIRUBIN 0.5 mg/dL (0.2-1.0); TOTAL PROTEIN 7.7 g/dL (6.4-8.2)
[2020-06-05 19:51] VITALS: BP 135/72
== END 2020-06-05 19:51 | disposition home or self-care (01) ==
LOC: ER 16:20
PROVIDERS: Nurse Practitioner Family
DX: F12.288 Cannabis dependence with other cannabis-induced disorder (principal); R11.2 Nausea with vomiting, unspecified; R10.84 Generalized abdominal pain